=== PATIENT | female | born 1995 | race Caucasian/White ===

== ENCOUNTER 2017-08-25 18:50 | Emergency (ER) | payer OTHER ==
[~2017-08-25] VITALS: Ht 172.7 cm; Wt 105.5 kg
[~2017-08-25 18:50] MED LIST: CLINDAMYCIN HC300 MG PO
[2017-08-25] MEDS ORDERED: BIRTH CONTROL (19:25)
[2017-08-25] MEDS ORDERED: DOXYCYCLINE HY100 MG PO (21:25)
[2017-08-25] MEDS ORDERED: TRAMADOL HCL50 MG PO (21:25)
== END 2017-08-25 22:04 | disposition home or self-care (01) ==
LOC: ED 18:50
DX: N73.0 Acute parametritis and pelvic cellulitis (principal); Z88.0 Allergy status to penicillin
CPT/HCPCS: 80053; 81001; 83690; 84703; 85025; 87491; 87591; 96374; 99283; J0696

== ENCOUNTER 2017-10-06 20:13 | Emergency (ER) | payer OTHER ==
[~2017-10-06] VITALS: Ht 172.7 cm; Wt 99.3 kg
[~2017-10-06 20:13] MED LIST changes: +BIRTH CONTROL; +DOXYCYCLINE HY100 MG PO; +TRAMADOL HCL50 MG PO
--- OUTSIDE RECORDS SUMMARY | 2017-10-06 20:45 | XMS | Clinical Summary ---
Demographics + + + | Address | [address] | | | [place] [address] | + + + | Home Phone | | + + + | Preferred Language | Unknown | + + + | Marital Status | Single | + + + | Rastafari Affiliation | Unknown | + + + | Race | Unknown | + + + | Ethnic Group | Unknown | + + + Author + + + | Author | [employer] | + + + | Organization | [employer] | + + + | Address | Unknown | + + + | Phone | Unavailable | + + + Support + + +---------+ + | Name | Relationship | Address | Phone | + + +---------+ + | Verna Mendez | ECON | Unknown | | + + +---------+ + Care Team Providers + +------+ + | Care Automotive Service Writer Name | Role | Phone | + +------+ + PP | Unavailable | + +------+ + Allergies + + + + + + | Active Allergy | Reactions | Severity | Noted | Comments | | | | | Date | | + + + + + + | Penicillins | Other (See Comments) | Medium | 03/20/20 | Pt reports "It | | | | | 17 | makes my body hot | | | | | | and sussy." | + + + + + + Current Medications No known medications Active Problems + + + | Problem | Noted Date | + + + | Vaginal discharge during in third trimester | 03/21/2017 | + + + + + + + | Currently | Estimated Date of Delivery | Comments | + + + + | Yes | 05/11/2017 | Based on Patient | | | | Reported | + + + + Social History + +-------+ +--------+------+ | Tobacco Use | Types | Packs/Day | Years | Date | | | | | Used | | + +-------+ +--------+------+ | Never Smoker | | | | | + +-------+ +--------+------+ + +---+---+---+ | Smokeless Tobacco: | | | | | Never Used | | | | + +---+---+---+ + + +---------+ + | Alcohol Use | Drinks/We | oz/Week | Comments | | | ek | | | + + +---------+ + | No | | | | + + +---------+ + + + + + | Currently | Estimated Date of Delivery | Comments | + + + + | Yes | 05/11/2017 | Based on Patient | | | | Reported | + + + + + + + | Sex Assigned at | Date Recorded | | | | + + + | Not on file | | + + + Last Filed Vital Signs + + + + | Vital Sign | Reading | Time Taken | + + + + | Blood Pressure | 139/77 | 03/20/2017 8:42 PM PDT | + + + + | Pulse | 116 | 03/20/2017 8:42 PM PDT | + + + + | Temperature | 36.7 C (98 F) | 03/20/2017 8:42 PM PDT | + + + + | Respiratory Rate | 18 | 03/20/2017 8:42 PM PDT | + + + + | Oxygen Saturation | - | - | + + + + | Inhaled Oxygen | - | - | | Concentration | | | + + + + | Weight | - | - | + + + + | Height | - | - | + + + + | Body Mass Index | - | - | + + + + Plan of Treatment Not on file Results Not on filefrom Last 3 Months Insurance + +--------+ +------+-------+ + | Payer | Benefi | Subscriber | Type | Phone | Address | | | t Plan | ID | | | | | | / | | | | | | | Group | | | | | + +--------+ +------+-------+ + | MEDICAID | MEDICA | xxxxxxxxxxx | | | [address] | | | [place] | | | | [place] | | | [place] & | | | | [phone] | | | [place] | | | | | + +--------+ +------+-------+ + + +--------+ +--------+ + + | Guarantor Name | Accoun | Relation to | Date | Phone | Billing Address | | | t Type | Patient | of | | | | | | | | | | + +--------+ +--------+ + + | NELLA ONTIVEROS | Person | Self | [birth year] | Home: | [facility] [address] | | | al/Fam | | 1995 | [phone] | | | [place] | | | 1991 | [place] | | | | | | | [phone] | + +--------+ +--------+ + +
--- OUTSIDE RECORDS SUMMARY | 2017-10-06 20:45 | XMS | Clinical Summary ---
Demographics + + + | Address | [address] | | | [place] [address] | + + + | Home Phone | | + + + | Preferred Language | Unknown | + + + | Marital Status | Single | + + + | Moravian Affiliation | Unknown | + + + | Race | Unknown | + + + | Ethnic Group | Unknown | + + + Author + + + | Author | [employer] [facility] | + + + | Organization | [email or web address] | + + + | Address | Unknown | + + + | Phone | Unavailable | + + + Support + + +---------+ + | Name | Relationship | Address | Phone | + + +---------+ + | Verna Mendez | ECON | Unknown | | + + +---------+ + Care Team Providers + +------+ + | Care Prison Classification Counselor Name | Role | Phone | + [...] | [place] & | | | | [phone] | | | [place] | | | [...] | Self | [birth year] | Home: | [facility] [address] | | | al/Fam | | 1995 | [phone] | | | [place] | | | 1991 | [place] | | | | | | | [phone] | + +--------+ +--------+ + +
[2017-10-06] MEDS ORDERED: CEPHALEXIN500 MG PO (22:20)
== END 2017-10-06 22:30 | disposition home or self-care (01) ==
LOC: ED 20:13
DX: J02.9 Acute pharyngitis, unspecified (principal); Z88.0 Allergy status to penicillin
CPT/HCPCS: 87081; 87880; 99283

== ENCOUNTER 2018-10-31 06:23 | Emergency (ER) | payer SELFPAY ==
[~2018-10-31] VITALS: Ht 172.7 cm; Wt 97.5 kg
[~2018-10-31 06:23] MED LIST changes: +CEPHALEXIN500 MG PO
--- OUTSIDE RECORDS SUMMARY | 2018-10-31 06:26 | XMS ---
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 Care History Medical/Surgical 10/07/2017 [facility] - [facility] spoke with patient about PCP and who the patient is currently assigned to at the Pediatric Clinic. - Patient stated she will go fill out the new patient paperwork at the clinic and get that process started. CHW provided feedback about ED utilization and what a PCP should be utilized for. Care Recommendation: Patient requires education on the scope and purpose of the ED as an acute care provider not a Primary Care Provider and should not be utilized for chronic conditions. If patient returns to ED please contact [facility] at . These are guidelines and the provider should exercise clinical judgment when providing care. E.D. VISIT COUNT (12 MO.) 1 [facility] TOTAL 1 NOTE: Visits indicate total known visits. ED/UCC VISIT TRACKING (12 MO.) 10/31/2018 06:24 DAREN Strauss TYPE: Emergency COMPLAINT: - EAR PAIN [facility]/2017 [facility] DIAGNOSES: - Acute pharyngitis, unspecified - sore throat INPATIENT VISIT TRACKING (12 MO.) No inpatient visits to display in this time frame [id number]
== END 2018-10-31 06:43 | disposition home or self-care (01) ==
LOC: ED 06:23
DX: H65.33 Chronic mucoid otitis media, bilateral (principal); Z88.0 Allergy status to penicillin
CPT/HCPCS: 99282

== ENCOUNTER 2019-03-25 14:55 | Emergency (ER) | payer OTHER ==
[~2019-03-25] VITALS: Ht 172.7 cm; Wt 97.5 kg
--- OUTSIDE RECORDS SUMMARY | ~2019-03-25 | XMS | Clinical Summary ---
Demographics + + + | Address | [address] | | | [place] [address] | + + + | Home Phone | | + + + | Preferred Language | Unknown | + + + | Marital Status | Single | + + + | Taoism Affiliation | Unknown | + + + | Race | Unknown | + + + | Ethnic Group | Unknown | + + + Author + + + | Author | [facility] | | | and Faizanana | + + + | Organization | [facility] | | | and [...] [place] | | | | | [address] | | + + + + + | Ary Jaimes | ECON | [address] | | | | | [place], [place] | | | | | [phone] | | + + + + + Care Team Providers + +------+ + | Care Employee Placement Specialist Name | Role | Phone | + [...] documents on file. For more information, please contact:[facility] [place] [address]
--- OUTSIDE RECORDS SUMMARY | ~2019-03-25 | XMS | Clinical Summary ---
Demographics + + + | Address | [address] | | | [place] [address] | + + + | Home Phone | | + + + | Preferred Language | Unknown | + + + | Marital Status | Single | + + + | Taoism Affiliation | Unknown | + + + | Race | Unknown | + + + | Ethnic Group | Unknown | + + + Author + + + | Author | [facility] | | | and Faizanana | + + + | Organization | [facility] | | | [...] [place] | | | | | [address] | | + + + + + | Ary Jaimes | ECON | [address] | | | | | [place], [place] | | | | | [address] | | + + + + + Care Team Providers + +------+ + | Care Sole Dyer Name | Role | Phone | + [...] documents on file. For more information, please contact:[facility] [place] [address]
--- OUTSIDE RECORDS SUMMARY | 2019-03-25 14:58 | XMS ---
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 E.D. VISIT COUNT (12 MO.) [address] [facility] TOTAL 2 NOTE: Visits indicate total known visits. ED/UCC VISIT TRACKING (12 MO.) 03/25/2019 14:55 [place] [place] TYPE: Emergency COMPLAINT: - DENTAL PAIN 10/31/2018 06:24 D[facility] [place] TYPE: Emergency COMPLAINT: - EAR PAIN DIAGNOSES: - Allergy status to penicillin - Otalgia, bilateral - Chronic mucoid otitis media, bilateral INPATIENT VISIT TRACKING (12 MO.) No inpatient visits to display in this time frame [email or web address]
[2019-03-25] MEDS ORDERED: NORCO 7.5-3251 EACH PO (16:43)
[2019-03-25] MEDS ORDERED: CLEOCIN HCL300 MG PO (16:43)
== END 2019-03-25 16:50 | disposition home or self-care (01) ==
LOC: ED 14:55
DX: K04.7 Periapical abscess without sinus (principal); Z88.0 Allergy status to penicillin
CPT/HCPCS: 99282

== ENCOUNTER 2019-04-03 07:53 | Emergency (ER) | payer OTHER ==
[~2019-04-03] VITALS: Ht 172.7 cm; Wt 99.8 kg
--- OUTSIDE RECORDS SUMMARY | ~2019-04-03 | XMS | Clinical Summary ---
Demographics + + + | Address | [address] | | | [place] [address] | + + + | Home Phone | | + + + | Preferred Language | Unknown | + + + | Marital Status | Single | + + + | Muslim Affiliation | Unknown | + + + | Race | Unknown | + + + | Ethnic Group | Unknown | + + + Author + + + | Author | [facility] | | | and [place]iz[place] | + + + | Organization | [facility] | | | and [place] | + + + | Address | Unknown | + + + | Phone | Unavailable | + + + Support + + + + + | Name | Relationship | Address | Phone | + + + + + | Hakan Siddiqi | ECON | [address] | | | | | [place] | | | | | [address] | | + + + + + | Ary Jaimes | ECON | [address] | | | | | [place], [place] | | | | | [address] | | + + + + + Care Team Providers + +------+ + | Care American Indian Studies Professor Name | Role | Phone | + +------+ + | No, Physician | PCP | Unavailable | + +------+ + Allergies + + + + + + | Active Allergy | Reactions | Severity | Noted | Comments | | | | | Date | | + + + + + + | Cranberry | Rash | Low | 04/13/20 | | | | | | 17 | | + + + + + + | Penicillins | Anaphylaxis | High | 04/05/20 | | | | | | 17 | | + + + + + + Medications + + + +---------+------+------+-------+ | Medication | Sig | Dispensed | Refills | Star | End | Statu | | | | | | t | Date | s | | | | | | Date | | | + + + +---------+------+------+-------+ | docusate sodium | Take 100 mg by mouth | | 0 | | | Activ | | (COLACE) 100 mg | Twice daily as | | | | | e | | capsule | needed for | | | | | | | | Constipation. | | | | | | + + + +---------+------+------+-------+ Active Problems + + + | Problem | Noted Date | + + + | Uterine contractions during | 05/05/2017 | + + + | Insufficient care, third trimester | 04/24/2017 | + + + | Amniotic fluid leaking | 04/24/2017 | + + + + + | Overview: Negative speculum exam 04/24/17 | + + + + + | Group beta Strep positive | 04/24/2017 | + + + + + | Overview: In URINE | + + + + + | related nausea, antepartum | 04/24/2017 | + + + | 38 weeks gestation of | 04/21/2017 | + + + | Vaginal discharge during in third trimester | 03/21/2017 | + + + Social History + +-------+ +--------+------+ | Tobacco Use | Types | Packs/Day | Years | Date | | | | | Used | | + +-------+ +--------+------+ | Never Smoker | | | | | + +-------+ +--------+------+ + +---+---+---+ | Smokeless Tobacco: | | | | | Never Used | | | | + +---+---+---+ + + | Tobacco Cessation: Counseling Given: No | + + + + +---------+ + | Alcohol Use | Drinks/We | oz/Week | Comments | | | ek | | | + + +---------+ + | No | | | | + + +---------+ + + + + | Sex Assigned at | Date Recorded | | | | + + + | Not on file | | + + + + + + + | Job Start Date | Occupation | Industry | + + + + | Not on file | Not on file | Not on file | + + + + + + + + | Travel History | Travel Start | Travel End | + + + + + + | No recent travel history available. | + + Last Filed Vital Signs + + + + | Vital Sign | Reading | Time Taken | + + + + | Blood Pressure | 141/94 | 12/25/20171907 PDT | + + + + | Pulse | 112 | 12/25/20171907 PDT | + + + + | Temperature | 36.6 C (97.8 F) | 12/25/20171907 PDT | + + + + | Respiratory Rate | 16 | 12/25/20171907 PDT | + + + + | Oxygen Saturation | 98% | 12/25/20171907 PDT | + + + + | Inhaled Oxygen | - | - | | Concentration | | | + + + + | Weight | 97.5 kg (215 lb) | 12/25/20171912 PDT | + + + + | Height | 175.3 cm (5' 9") | 12/25/20171912 PDT | + + + + | Body Mass Index | 31.75 | 12/25/20171912 PDT | + + + + Plan of Treatment + + + + + | Health Maintenance | Due Date | Last Done | Comments | + + + + + | Well Child Check | | | | | | 1 | | | + + + + + | Vaccine: HPV (1 - | | | | | Female 3-dose | 3 | | | | series) | | | | + + + + + | Vaccine: | | | | | Dtap/Tdap/Td (1 - | 7 | | | | Tdap) | | | | + + + + + | Cervical Cancer | | | | | Screening (Pap) | 9 | | | + + + + + | Vaccine: Influenza | | | | | (#1) | 9 | | | + + + + + Results Not on filefrom Last 3 Months Advance Directives Patient has advance care planning documents on file. For more information, please contact:[facility] [address]
--- OUTSIDE RECORDS SUMMARY | ~2019-04-03 | XMS | Clinical Summary ---
Demographics + + + | Address | [address] | | | [place] [address] | + + + | Home Phone | | + + + | Preferred Language | Unknown | + + + | Marital Status | Single | + + + | Hinduism Affiliation | Unknown | + + + | Race | Unknown | + + + | Ethnic Group | Unknown | + + + Author + + + | Author | [facility] | | | and Faizanana | + + + | Organization | [facility] | | | [...] [place] | | | | | [address] | | + + + + + | Ary Jaimes | ECON | [address] | | | | | [place], [place] | | | | | [address] | | + + + + + Care Team Providers + +------+ + | Care Fine Sander Name | Role | Phone | [...] documents on file. For more information, please contact:[facility] [place] [address]
[~2019-04-03 07:53] MED LIST changes: +CLEOCIN HCL300 MG PO; +NORCO 7.5-3251 EACH PO
--- OUTSIDE RECORDS SUMMARY | 2019-04-03 07:56 | XMS ---
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 Care History Medical/Surgical 10/07/2017 [facility] - CHW spoke with patient about [...] providing care. E.D. VISIT COUNT (12 MO.) 3 [facility] TOTAL 3 NOTE: Visits indicate total known visits. ED/UCC VISIT TRACKING (12 MO.) 04/03/2019 07:53 [facility] [place] TYPE: Emergency COMPLAINT: - SORE THROAT 03/25/2019 14:55 [facility] [place] TYPE: Emergency COMPLAINT: - DENTAL PAIN DIAGNOSES: - Other specified disorders of teeth and supporting structures - Periapical abscess without sinus - Allergy status to penicillin 10/31/2018 06:24 [facility] [place] TYPE: Emergency COMPLAINT: - EAR PAIN DIAGNOSES: - Allergy status to penicillin - Otalgia, bilateral - Chronic mucoid otitis media, bilateral INPATIENT VISIT TRACKING (12 MO.) No inpatient visits to display in this time frame [id number]
== END 2019-04-03 08:35 | disposition home or self-care (01) ==
LOC: ED 07:53
DX: J06.9 Acute upper respiratory infection, unspecified (principal); Z88.0 Allergy status to penicillin
CPT/HCPCS: 99282

== ENCOUNTER 2019-04-08 19:01 | Emergency (ER) | payer OTHER ==
[~2019-04-08] VITALS: Ht 172.7 cm; Wt 104.6 kg
--- OUTSIDE RECORDS SUMMARY | ~2019-04-08 | XMS | Clinical Summary ---
Demographics + + + | Address | [address] | | | [place] [address] | + + + | Home Phone | | + + + | Preferred Language | Unknown | + + + | Marital Status | Single | + + + | Sabianism Affiliation | Unknown | + + + | Race | Unknown | + + + | Ethnic Group | Unknown | + + + Author + + + | Author | [facility] | | | and Faizanana | + + + | Organization | [facility] | | | and [...] [place] | | | | | [address] | | + + + + + | Ary Jaimes | ECON | [address] | | | | | [place], [place] | | | | | [address] | | + + + + + Care Team Providers + +------+ + | Care Elementary Math Tutor Name | Role | Phone | + [...] documents on file. For more information, please contact:[facility] [place] [address]
--- OUTSIDE RECORDS SUMMARY | ~2019-04-08 | XMS | Clinical Summary ---
Demographics + + + | Address | [address] | | | [place] [address] | + + + | Home Phone | | + + + | Preferred Language | Unknown | + + + | Marital Status | Single | + + + | Jehovah'S Witness Affiliation | Unknown | + + + | Race | Unknown | + + + | Ethnic Group | Unknown | + + + Author + + + | Author | [facility] | | | and Faizanana | + + + | Organization | [facility] | | | and [...] [place] | | | | | [address] | | + + + + + | Ary Jaimes | ECON | [address] | | | | | [place], [place] | | | | | [phone] | | + + + + + Care Team Providers + +------+ + | Care Hand Sander Name | Role | Phone | + [...] documents on file. For more information, please contact:[facility] [place] [address]
--- OUTSIDE RECORDS SUMMARY | 2019-04-08 19:06 | XMS ---
PreManage Notification: REUBEN ONTIVEROS Security Digital Media Intern Events No recent Security Events currently on file CRITERIA MET - [facility] - 2 Visits in 30 Days CARE PROVIDERS RODRICK OLIVIA Nurse Practitioner: Psychiatric/Mental Health Current PHONE: Unknown NEELIMA CODY Nurse Practitioner 11/01/2018-Silvana SCHILLING PHONE: Unknown NON ESTABLISHED Primary Care Current PHONE: [phone] TAYLOR Gu Primary Care Current PHONE: [phone] Caitlin has no Care Guidelines for this patient. Care History Medical/Surgical 10/07/2017 [facility] - CHW spoke with patient about [...] providing care. E.D. VISIT COUNT (12 MO.) 4 [facility] TOTAL 4 NOTE: Visits indicate total known visits. ED/UCC VISIT TRACKING (12 MO.) 04/08/2019 19:01 D[facility]EN [place] TYPE: Emergency COMPLAINT: - DENTAL PROBLEM 04/03/2019 07:53 DAREN [place] TYPE: Emergency COMPLAINT: - SORE THROAT DIAGNOSES: - Acute upper respiratory infection, unspecified - Nasal congestion - Allergy status to penicillin 03/25/2019 14:55 DAREN [place] TYPE: Emergency [...] visits to display in this time frame [id number]
== END 2019-04-08 20:18 | disposition home or self-care (01) ==
LOC: ED 19:01
DX: G89.18 Other acute postprocedural pain (principal); K08.89 Other specified disorders of teeth and supporting structures; Z98.818 Other dental procedure status; Z88.0 Allergy status to penicillin
CPT/HCPCS: 99282

== ENCOUNTER 2019-08-16 08:42 | Emergency (ER) | payer OTHER ==
[~2019-08-16] VITALS: Ht 172.7 cm; Wt 104.6 kg
[2019-08-16] MEDS ORDERED: ACETAMINOPHEN500 MG PO (08:59)
== END 2019-08-16 09:03 | disposition home or self-care (01) ==
LOC: ED 08:42
DX: R05 Cough (principal)

== ENCOUNTER 2021-06-19 17:31 | Inpatient (IN) | payer OTHER ==
[~2021-06-19] VITALS: Ht 172.7 cm; Wt 99.8 kg
[~2021-06-19 17:31] MED LIST changes: +ACETAMINOPHEN500 MG PO; +PREDNISONE20 MG PO
--- NOTE | 2021-06-21 06:31 | NUR ---
COVID SWAB DONE TO BOTH NARE SHORTLY AFTER MIDNIGHT.
--- NOTE | 2021-06-22 05:07 | NUR ---
pt breast feeding infant on left breast. good latch suck and swallowing audible
--- NOTE | 2021-06-22 05:58 | NUR ---
normal saline lock discontinued catheter tip intact
--- NOTE | 2021-06-22 12:45 | PR ---
[facility] [address] [place] [address] Signed PP Progress Notes Datetime Report Generated by CPN: 06/22/2021 12:45 SUBJECTIVE: [id number] Pain: Within Normal Limits Nausea/Vomiting: Denies Vital Signs: [id number] Vital Signs: Reviewed; Within Normal Limits Notable Details: PP Hgb/Hct = 12.4/38.1 Abdomen/Uterus: Normal Lochia: Normal Extremities: Normal IMPRESSION/PLAN/PROCEDURES: [id number] Impression: Normal Progression Plan: Discharge Procedures: None Progress Notes: Doing qwell, without complaint; wants to go home today. Signing Physician: Roberto Lopez MD Copies: ~ *Electronically Signed* 06/22/21 1245 ROBERTO LOPEZ MD PATIENT NAME: REUBEN ONTIVEROS PROGRESS NOTE DATE OF : [birth year] PHYSICIAN: ROBERTO LOPEZ MD RPT #: [id number] REPORT IS CONFIDENTIAL AND NOT TO BE RELEASED WITHOUT AUTHORIZATION
== END 2021-06-22 14:35 | disposition home or self-care (01) | DRG 807 ==
LOC: FBC 06-20 17:16
PROVIDERS: ADMIT General Practice; ATTEND General Practice
PROC: 10E0XZZ Delivery of Products of Conception, External Approach (ICD-10-PCS; principal; 2021-06-21)
PROC: 3E0P7VZ Introduction of Hormone into Female Reproductive, Via Natural or Artificial Opening (ICD-10-PCS; 2021-06-21)
PROC: 10907ZC Drainage of Amniotic Fluid, Therapeutic from Products of Conception, Via Natural or Artificial Opening (ICD-10-PCS; 2021-06-21)
PROC: 00HU33Z Insertion of Infusion Device into Spinal Canal, Percutaneous Approach (ICD-10-PCS; 2021-06-21)
PROC: 3E0R3BZ Introduction of Anesthetic Agent into Spinal Canal, Percutaneous Approach (ICD-10-PCS; 2021-06-21)
DX: O99.824 Streptococcus B carrier state complicating childbirth (principal); Z37.0 Single live birth; O69.81X0 Labor and delivery complicated by cord around neck, without compression, not applicable or unspecified; Z3A.39 39 weeks gestation of pregnancy; Z67.20 Type B blood, Rh positive; Z20.822 Contact with and (suspected) exposure to COVID-19
CPT/HCPCS: 01960; 85027; A9270; C9803; J1200; J2590; J2795; J3010; J3370; J7060; U0003

== ENCOUNTER 2021-08-08 15:05 | Emergency (ER) | payer OTHER ==
[~2021-08-08] VITALS: Ht 182.9 cm; Wt 99.8 kg
[2021-08-08] MEDS ORDERED: CEPHALEXIN500 MG PO (18:15)
== END 2021-08-08 18:25 | disposition home or self-care (01) ==
LOC: ED 15:05
DX: O86.20 Urinary tract infection following delivery, unspecified (principal); N39.0 Urinary tract infection, site not specified; Z88.0 Allergy status to penicillin
CPT/HCPCS: 81001; 84703; 87088; 99283

== ENCOUNTER 2022-01-25 14:05 | Emergency (ER) | payer OTHER ==
[~2022-01-25] VITALS: Ht 182.9 cm; Wt 131.5 kg
--- NOTE | 2022-01-26 07:14 | EKG ---
[facility] [address] [facility] [address] [place], [place] [address] Signed Sinus tachycardia Rightward axis Borderline ECG When compared with ECG of 09-JUN-2021 18:16, No significant change was found Confirmed by LILIAM LU MD ([id number]) on 01/26/2022 7:14:29 AM Electronically Signed By: LILIAM LU MD 01/26/2214 PATIENT NAME: ONTIVEROSREUBEN Electrocardiogram DATE OF : [birth year] PHYSICIAN: LILIAM LU MD REPORT #: [id number] REPORT IS CONFIDENTIAL AND NOT TO BE RELEASED WITHOUT AUTHORIZATION
== END 2022-01-25 19:15 | disposition home or self-care (01) ==
LOC: ED 14:05
DX: U07.1 COVID-19 (principal); Z88.0 Allergy status to penicillin
CPT/HCPCS: 36415; 71045; 80053; 81001; 83605; 85025; 85379; 85610; 85730; 87502; 93005; 93010; 96361; 96374; 96375; 99284-25; A9270; C9803; J1885; J7030; U0003

== ENCOUNTER 2022-06-17 12:14 | Emergency (ER) | payer OTHER ==
[~2022-06-17] VITALS: Ht 182.9 cm; Wt 131.5 kg
[2022-06-17] MEDS ORDERED: SPRINTEC1 EACH PO (12:38)
[2022-06-17] MEDS ORDERED: LISINOPRIL20 MG PO (12:38)
[2022-06-17] MEDS ORDERED: SERTRALINE HCL50 MG PO (12:38)
[2022-06-17] MEDS ORDERED: ONDANSETRON ODT8 MG PO (13:51)
== END 2022-06-17 14:00 | disposition home or self-care (01) ==
LOC: ED 12:14
DX: K52.9 Noninfective gastroenteritis and colitis, unspecified (principal); Z88.0 Allergy status to penicillin; Z79.899 Other long term (current) drug therapy
CPT/HCPCS: 36415; 80053; 81001; 84703; 85025; 96361; 96374; 99284-25; J2405; J7030

== ENCOUNTER 2022-07-23 08:21 | Emergency (ER) | payer OTHER ==
[~2022-07-23] VITALS: Ht 182.9 cm; Wt 131.5 kg
[~2022-07-23 08:21] MED LIST changes: +LISINOPRIL20 MG PO; +ONDANSETRON ODT8 MG PO; +SERTRALINE HCL50 MG PO; +SPRINTEC1 EACH PO
[2022-07-23] MEDS ORDERED: CEPHALEXIN500 M1 PO (09:29)
== END 2022-07-23 09:36 | disposition home or self-care (01) ==
LOC: ED 08:21
DX: N39.0 Urinary tract infection, site not specified (principal); Z88.0 Allergy status to penicillin; Z79.899 Other long term (current) drug therapy
CPT/HCPCS: 81001; 99284

== ENCOUNTER 2024-12-13 21:59 | Emergency (ER) | payer SELFPAY ==
[~2024-12-13] VITALS: Ht 170.2 cm; Wt 100.0 kg
[~2024-12-13 21:59] MED LIST changes: +CEPHALEXIN500 M1 PO
[2024-12-13 22:54] LABS: BASOPHILS 0.3 % (0.1-1.2); EOSINOPHILS 2.1 % (0.7-5.8); LYMPHOCYTES 33.6 % (19.3-51.7); MCH 27.1 PG (25.6-32.2); MCHC 32.8 g/dL (32.2-35.5); MCV 82.6 fL (79.4-94.8); MONOCYTES 8.1 % (4.7-12.5); NEUTROPHILS 55.3 % (34.0-71.1); RBC 4.72 M/uL (3.93-5.22)
[2024-12-13 23:10] LABS: ALT (SGPT) 27.0 U/L (14-59); AST (SGOT) 12.0 U/L (15-37); GLOMERULAR FILTRATION RATE,EST 67.0 mL/min (>60); PROTEIN, TOTAL 7.2 g/dL (6.4-8.2); UREA NITROGEN 16.0 mg/dL (7-18)
[2024-12-14] MEDS ORDERED: TRAMADOL HCL50 MG PO (00:35)
[2024-12-14] MEDS ORDERED: TRAMADOL HCL 50 MG HOME.PACK PO ONE (00:45)
[2024-12-14] MEDS ORDERED: ALBUTEROL SULFATE 8 GM HOME.PACK INH ONE (00:45)
[2024-12-14 00:50] VITALS: BP 108/60
== END 2024-12-14 00:55 | disposition home or self-care (01) ==
LOC: ED 21:59
PROVIDERS: Family Medicine
DX: S92.352A Displaced fracture of fifth metatarsal bone, left foot, initial encounter for closed fracture (principal); X58.XXXA Exposure to other specified factors, initial encounter; Z88.0 Allergy status to penicillin
CPT/HCPCS: 36415; 71045; 73630; 80053; 85025; 85379; 94640; 99285-25; A9270